=== PATIENT | male | born 1970 | race Caucasian/White ===

== ENCOUNTER 2019-06-11 17:38 | Emergency (ER) | payer SELFPAY ==
[2019-06-11 17:41] VITALS: BP 133/75; PULSE 65; RESP 12; TEMP 36.9; O2SAT 95
--- NOTE | 2019-06-11 17:47 | ED.GENADUL_ITS ---
Discharge Plan Disposition Patient Disposition: HOME Discharge Details Chief Complaint: RashLesion Clinical Impression: Bed bug bite Primary Care Provider: None,None ED Provider: Sameer Bermudez Home Meds and New Rx's Prescriptions: No Action No Known Home Meds RF: 0 Discharge Instructions Instructions: Bed Bugs (ED) Additional Instructions: Please contact your primary care physician to arrange follow-up. Return to the ER for any worsening or new concerning symptoms. Discharge Data Discharge Date/Time-TO BE ENTERED AT DEPARTURE: 06/11/19 18:02 Medical Decision Making 48-year-old male here with bedbug bites. No signs of active bacterial infection. Exam/history is not consistent with syphilis, meningitis, Chapman- James syndrome/[place], other acute emergent life-threatening process. Usual and customary discharge instructions provided. HPI General Mode of arrival: ambulatory . Date/Time Provider Initiated Documentation: 06/11/19 17:47 . Limitations to Documentation: no limitations . Information obtained by: patient . HPI Narrative: 48-year-old male presents with rash which he attributes to bedbug bites. He is staying at a hotel where there is known infestation of bedbugs. He has rash on his legs and arms. Rash started 2 days ago. Rash is quite itchy. Patient states he is currently living at a motel that has infestation of bedbugs. He is concerned that he may have bedbugs. Related Data Home Medications Medication Instructions Recorded Confirmed Unknown [No Known Home Meds] 06/11/19 06/11/19 Allergies Allergy/AdvReac Type Severity Reaction Status Date / Time shellfish derived Allergy Unverified 06/11/19 17:44 General Stated Complaint: RashLesion ZENY: 5 Review of Systems Constitutional Constitutional: Denies fever(s) Respiratory Comments: Recent cough, improved Integumentary/Breasts Skin/Breast: Reports as per HPI and Reports rash [facility] Social History Smoking/Tobacco Use Status: Current every day Tobacco Type: cigarettes Alcohol Intake: never Drug use: Never Substance use type: does not use Do you feel safe at home: Yes Do you feel safe in your relationship?: Yes Exam Const General: cooperative, comfortable and no acute distress Orientation: alert, awake and not confused HENID Mouth: moist mucous membranes Eyes Conjunctivae: normal conjunctivae Skin Other: Sparsely distributed individual papules/bites with some excoriation, rash spares palms and soles Neuro General: alert and awake Course Vital Signs Vital signs: Vital Signs Temperature 36.9 C 06/11/19 17:41 Pulse 65 06/11/19 17:41 Respiratory Rate 12 06/11/19 17:41 Blood Pressure 133/75 06/11/19 17:41 Pulse Oximetry 95 06/11/19 17:41 Temperature 36.9 C 06/11/19 17:41 Temperature Source Temporal Artery Scan 06/11/19 17:41 Pulse 65 06/11/19 17:41 Respiratory Rate 12 06/11/19 17:41 Respiratory Effort Non-Labored 06/11/19 17:42 Blood Pressure 133/75 06/11/19 17:41 Blood Pressure Position Sitting 06/11/19 17:41 Pulse Oximetry 95 06/11/19 17:41 Oxygen Delivery Method Room Air 06/11/19 17:41 Oxygen Flow Rate 0 06/11/19 17:41 Pain Level 0 06/11/19 17:41
== END 2019-06-11 18:02 | disposition home or self-care (01) ==
PROVIDERS: Emergency Provider Student in an Organized Health Care Education/Training Program
DX: R21 Rash and other nonspecific skin eruption (principal); W57.XXXA Bitten or stung by nonvenomous insect and other nonvenomous arthropods, initial encounter
CPT/HCPCS: 99283